=== PATIENT | female | born 1995 | race African-American/Black ===

== ENCOUNTER 2022-07-28 19:09 | Emergency (ER) | payer OTHER ==
[2022-07-28] MEDS ORDERED: ACETAMINOPHEN 500 MG TAB PO ONE (19:45)
[2022-07-28] MEDS ORDERED: NS 2,280 ML in IV 1 EA IV ONE (19:45)
[2022-07-28 20:38] LABS: BASO % 0.3 % (0.0-1.0); EOS % 0.3 % (0.0-3.0); HEMATOCRIT 36.3 % (36.0-47.0); HEMOGLOBIN 11.9 g/dl (12.0-15.5); LYMPH # 1.3 10^3/uL (1.5-5.0); LYMPH % 17.4 % (24.0-44.0); MEAN CORPUSCULAR HEMOGLOBIN 28.4 pg (27.0-33.0); MEAN CORPUSCULAR HGB CONC 32.8 g/dl (32.0-36.5); MEAN CORPUSCULAR VOLUME 86.6 fl (80.0-96.0); MONO # 0.4 10^3/uL (0.0-0.8); MONO % 5.4 % (2.0-8.0); NEUTROPHILS # 5.6 10^3/uL (1.5-8.5); NEUTROPHILS % 76.2 % (36.0-66.0); PLATELET COUNT, AUTOMATED 251 10^3/uL (150-450); RED BLOOD COUNT 4.19 10^6/uL (4.00-5.40); WHITE BLOOD COUNT 7.3 10^3/uL (4.0-10.0)
[2022-07-28] MEDS ORDERED: KETOROLAC 30 MG/ML 1ML VIAL IV ONE (20:50)
[2022-07-28 21:10] LABS: ERYTHROCYTE SEDIMENTATION RATE 55 mm/hr (0-20)
[2022-07-28 21:56] LABS: ALBUMIN 3.3 G/DL (3.2-5.2); ALKALINE PHOSPHATASE 64 U/L (46-116); ALT/SGPT 14 U/L (7.0-40); AST/SGOT 25 U/L (<34); BILIRUBIN,DIRECT < 0.1 MG/DL (<0.4); BILIRUBIN,TOTAL 0.2 MG/DL (0.3-1.2); TOTAL PROTEIN 6.7 G/DL (5.7-8.2)
[2022-07-28 22:17] LABS: MONO SCRN NEGATIVE (NEGATIVE)
[2022-07-29 00:26] LABS: CSF TUBE# TP TUBE 2
[2022-07-29 00:28] LABS: CSF TUBE# GLU TUBE 2
[2022-07-29 01:06] LABS: APPEARANCE, CSF CLEAR (CLEAR); COLOR, CSF COLORLESS (COLORLESS); CSF TUBE# CELL CNT TUBE 1
[2022-07-29 01:08] LABS: APPEARANCE, CSF CLEAR (CLEAR); COLOR, CSF COLORLESS (COLORLESS); CSF TUBE# CELL CNT TUBE 4
[2022-07-29 02:49] VITALS: BP 140/79
[2022-07-30] MEDS ORDERED: PENI500T PO (16:56)
== END 2022-07-29 02:50 | disposition home or self-care (01) ==
LOC: EDBD 19:09 → M ED 19:09
DX: R50.9 Fever, unspecified (principal)
CPT/HCPCS: 62270; 70450; 71045; 80047; 80076; 81001; 82945; 83605; 84157; 85025; 85652; 86140; 86308; 87040; 87070; 87086; 87205; 87483; 87486; 87581; 87633; 87798; 87880; 89050; 96374; 99284; J1885

== ENCOUNTER 2022-07-30 14:12 | Emergency (ER) | payer OTHER ==
[~2022-07-30] VITALS: Ht 165.1 cm; Wt 71.8 kg
[2022-07-30] MEDS ORDERED: ACETAMINOPHEN 325 MG TAB PO ONE (15:10)
[2022-07-30] MEDS ORDERED: NS 1,000 ML IV ONE (15:10)
[2022-07-30] MEDS ORDERED: KETOROLAC 30 MG/ML 1ML VIAL IV ONE (15:10)
[2022-07-30 15:22] LABS: BASO % 0.3 % (0.0-1.0); EOS % 0.1 % (0.0-3.0); HEMATOCRIT 35.8 % (36.0-47.0); LYMPH # 1.1 10^3/uL (1.5-5.0); LYMPH % 15.2 % (24.0-44.0); MEAN CORPUSCULAR HEMOGLOBIN 28.8 pg (27.0-33.0); MEAN CORPUSCULAR HGB CONC 33.5 g/dl (32.0-36.5); MEAN CORPUSCULAR VOLUME 85.9 fl (80.0-96.0); MONO # 0.4 10^3/uL (0.0-0.8); MONO % 6.1 % (2.0-8.0); NEUTROPHILS # 5.4 10^3/uL (1.5-8.5); NEUTROPHILS % 77.9 % (36.0-66.0); PLATELET COUNT, AUTOMATED 266 10^3/uL (150-450); RED BLOOD COUNT 4.17 10^6/uL (4.00-5.40); WHITE BLOOD COUNT 6.9 10^3/uL (4.0-10.0)
[2022-07-30] MEDS ORDERED: PENICILLIN V POTASSIUM 500 MG TAB PO ONE (15:25)
[2022-07-30 15:29] LABS: ERYTHROCYTE SEDIMENTATION RATE 93 mm/hr (0-20)
[2022-07-30 15:50] LABS: ALBUMIN 3.3 G/DL (3.2-5.2); ALKALINE PHOSPHATASE 70 U/L (46-116); ALT/SGPT 17 U/L (7.0-40); AST/SGOT 14 U/L (<34); BILIRUBIN,DIRECT < 0.1 MG/DL (<0.4); BILIRUBIN,TOTAL 0.3 MG/DL (0.3-1.2); BLOOD UREA NITROGEN 7 MG/DL (9-23); CALCIUM LEVEL 8.6 MG/DL (8.5-10.1); CARBON DIOXIDE LEVEL 25 MMOL/L (20-31); CHLORIDE LEVEL 105 MMOL/L (98-107); CREATININE FOR GFR 0.62 MG/DL (0.55-1.30); GLOMERULAR FILTRATION RATE > 60.0 (>60); GLUCOSE, FASTING 90 MG/DL (60-100); POTASSIUM SERUM 3.2 MMOL/L (3.5-5.1); SODIUM LEVEL 138 MMOL/L (136-145); TOTAL PROTEIN 6.9 G/DL (5.7-8.2)
[2022-07-30] MEDS ORDERED: PENI500T PO (16:56)
[2022-07-30 17:16] VITALS: BP 130/80
== END 2022-07-30 17:23 | disposition home or self-care (01) ==
LOC: M ED 14:12
DX: J02.0 Streptococcal pharyngitis (principal); R55 Syncope and collapse
CPT/HCPCS: 80048; 80076; 85025; 85652; 86140; 87880; 93005; 96374; 99285; J1885

== ENCOUNTER 2022-11-24 18:28 | Emergency (ER) | payer OTHER ==
[~2022-11-24] VITALS: Ht 165.1 cm; Wt 73.7 kg
[~2022-11-24 18:28] MED LIST: PENI500T PO
[2022-11-24 19:19] LABS: BASO % 0.5 % (0.0-1.0); EOS # 0.3 10^3/uL (0.0-0.5); EOS % 4.9 % (0.0-3.0); HEMATOCRIT 39.4 % (36.0-47.0); HEMOGLOBIN 12.8 g/dl (12.0-15.5); LYMPH # 2.8 10^3/uL (1.5-5.0); LYMPH % 46.8 % (24.0-44.0); MEAN CORPUSCULAR HEMOGLOBIN 28.8 pg (27.0-33.0); MEAN CORPUSCULAR HGB CONC 32.5 g/dl (32.0-36.5); MEAN CORPUSCULAR VOLUME 88.5 fl (80.0-96.0); MONO # 0.4 10^3/uL (0.0-0.8); MONO % 6.5 % (2.0-8.0); NEUTROPHILS # 2.5 10^3/uL (1.5-8.5); NEUTROPHILS % 41.1 % (36.0-66.0); PLATELET COUNT, AUTOMATED 262 10^3/uL (150-450); RED BLOOD COUNT 4.45 10^6/uL (4.00-5.40)
[2022-11-24 19:47] LABS: HCG, SERUM QUALITATIVE NEGATIVE (NEGATIVE)
[2022-11-24 19:49] LABS: LIPASE 33 U/L (12-53)
[2022-11-24 19:51] LABS: ALBUMIN 3.8 G/DL (3.2-5.2); ALKALINE PHOSPHATASE 55 U/L (46-116); ALT/SGPT 11 U/L (7.0-40); AST/SGOT 9 U/L (<34); BILIRUBIN,DIRECT < 0.1 MG/DL (<0.4); BILIRUBIN,TOTAL 0.2 MG/DL (0.3-1.2); BLOOD UREA NITROGEN 8 MG/DL (9-23); CALCIUM LEVEL 8.5 MG/DL (8.5-10.1); CARBON DIOXIDE LEVEL 22 MMOL/L (20-31); CHLORIDE LEVEL 109 MMOL/L (98-107); CREATININE FOR GFR 0.64 MG/DL (0.55-1.30); GLOMERULAR FILTRATION RATE > 60.0 (>60); GLUCOSE, FASTING 82 MG/DL (60-100); POTASSIUM SERUM 4.2 MMOL/L (3.5-5.1); SODIUM LEVEL 138 MMOL/L (136-145); TOTAL PROTEIN 7.3 G/DL (5.7-8.2)
[2022-11-25] MEDS ORDERED: COLA100C5 PO (02:11)
[2022-11-25] MEDS ORDERED: MIRA3350 PO (02:11)
[2022-11-25] MEDS ORDERED: FLEEENE12 PR (02:11)
[2022-11-25] MEDS ORDERED: FLEET ENEMA PR STA (02:14)
[2022-11-25] MEDS ORDERED: MAGNESIUM CITRATE 300ML BTL PO ONE (02:15)
[2022-11-25 02:28] VITALS: BP 118/68; TEMP 98.3; O2SAT 98
== END 2022-11-25 02:29 | disposition home or self-care (01) ==
LOC: M ED 18:28
DX: K59.00 Constipation, unspecified (principal); R10.30 Lower abdominal pain, unspecified; R14.0 Abdominal distension (gaseous)